=== PATIENT | male | born 2000 | race Caucasian/White ===

== ENCOUNTER 2024-04-20 16:56 | Emergency (ER) | payer OTHER, SELFPAY ==
[2024-04-20 16:57] VITALS: BP 100/68; PULSE 88; RESP 16; TEMP 36.6; O2SAT 100
[2024-04-20 16:59] VITALS: BMI 23.6
[2024-04-20 18:57] VITALS: PULSE 63; RESP 17; O2SAT 100
[2024-04-20 19:03] VITALS: BP 114/68; BP 122/85; BP 122/92; PULSE 63; PULSE 66; PULSE 88
--- NOTE | 2024-04-20 19:03 | EDS_ITS ---
HPI History of Present Illness Chief Complaint: Dizziness Informant: patient and spouse/S.O. Narrative Narrative: 23-year-old male presenting to the emergency room with near syncope. Patient states for the past several days he has had a productive cough nasal congestion and some vomiting. He states he has been trying to drink fluids and his urine is a light yellow. He notes subjective fever with sweating. He notes a slightly sore throat with coughing. No headache. He has not passed out but he gets the sensation really of lightheadedness and near syncope. Significant other was recently diagnosed with norovirus. He has not had any diarrhea. PFSH PFS Home Medications ?Medication ?Instructions ?Recorded ?Last Taken ?Type No Known/Unobtainable [No Known 4 Unknown History Home Medications] Allergy/AdvReac Type Severity Reaction Status Date / Time No Known Allergies Allergy Verified 04/20/24 16:57 Social History Smoking Status: Never smoker [facility] ED Constitutional Constitutional ED: Reports chills, fever(s) and subjective; Denies weight loss Eyes Eyes: Denies change in vision or diplopia ENT ENT ED: Reports rhinorrhea; Denies ear pain or sore throat Cardiovascular Cardiovascular: Reports other Details: Near syncope ; Denies chest pain, orthopnea, palpitations or racing heartbeat Respiratory/Chest Respiratory/Chest: Reports cough; Denies dyspnea or orthopnea Gastrointestinal Gastrointestinal: Reports nausea and vomiting; Denies abdominal pain or diarrhea Genitourinary Genitourinary ED: Denies dysuria, hematuria or urinary frequency Musculoskeletal Musculoskeletal: Denies arthralgias or myalgias Integumentary Denies abscess or rash Neurologic Neurologic: Denies headache(s) or weakness Psychiatric Psychiatric: Denies anxiety, depression, suicidal ideation or suicidal thoughts Endocrine Endocrinology: Denies polydipsia, polyphagia or polyuria Allergic/Immunologic Allergic/Immunologic ED: Denies mouth swelling, tongue swelling or urticaria EXAM Physical Exam Const Vital Signs: 04/20/24 16:57 04/20/24 18:57 04/20/24 19:03 Temperature 97.8 F Temperature Source Temporal Pulse Rate 88 63 Pulse Rate [Lying] 66 Pulse Rate [Sitting (for 1 minute prior to obtaining)] 63 Pulse Rate [Standing (for 1 minute prior to obtaining)] 88 Respiratory Rate 16 17 Blood Pressure 100/68 Blood Pressure [Lying] 122/85 H Blood Pressure [Sitting (for 1 minute prior to obtaining)] 114/68 Blood Pressure [Standing (for 1 minute prior to obtaining)] 122/92 H Blood Pressure Mean 78 Blood Pressure Mean [Lying] 97 Blood Pressure Mean [Sitting (for 1 minute prior to obtaining)] 83 Blood Pressure Mean [Standing (for 1 minute prior to obtaining)] 102 Pulse Ox 100 100 Oxygen Delivery Method Room Air 04/20/24 21:18 Temperature 97.7 F L Temperature Source Pulse Rate 67 Pulse Rate [Lying] Pulse Rate [Sitting (for 1 minute prior to obtaining)] Pulse Rate [Standing (for 1 minute prior to obtaining)] Respiratory Rate 16 Blood Pressure 122/92 H Blood Pressure [Lying] Blood Pressure [Sitting (for 1 minute prior to obtaining)] Blood Pressure [Standing (for 1 minute prior to obtaining)] Blood Pressure Mean 102 Blood Pressure Mean [Lying] Blood Pressure Mean [Sitting (for 1 minute prior to obtaining)] Blood Pressure Mean [Standing (for 1 minute prior to obtaining)] Pulse Ox 99 Oxygen Delivery Method Positive well nourished and well developed General Appearance ED: well developed and NAD HEENT Reports normocephalic, head/scalp atraumatic and moist mucous membranes Eyes PERRL and EOMs intact bilaterally Neck no lymphadenopathy, supple and no JVD Resp normal respiratory effort and clear to auscultation bilaterally Cardio regular rate, regular rhythm and no murmurs GI normal to inspection, nondistended, normoactive bowel sounds and non-tender Palpation: soft Back/Spine no CVA tenderness and normal ROM Extremity normal to inspection General Extremety ED: Negative for edema General Extremity: Negative for edema Neuro oriented x3 and CN's II-XII intact bilaterally Sensorium / Orientation: alert Motor Exam: strength 5/5 throughout Psych Mood & Affect: anxious; Negative for depressed or tearful Skin no rashes or lesions noted and no wounds MDM MDM MDM Narrative Medical decision making narrative: Differential diagnosis includes cardiac syncope dehydration electrolyte abn ormalities vasovagal near syncope pneumonia viral syndrome anemia pneumonia bronchitis Patient's white count is 4 hemoglobin 16.2 platelet count of 152. BMP with a potassium of 3.3 normal LFTs. His EKG is in normal sinus rhythm. He is influenza A positive. Patient received a dose of Toradol as well as IV fluids. He is not orthostatic. Clinically I think the patient can be discharged home wi th supportive care. He understands return instructions as well as oral hydration. History & Record Review Discussion w/independent historian: Patient and Significant other Lab Data Attestation: I reviewed the patient's lab results. Labs: Laboratory Results - last 24 hr 04/20/24 19:15 WBC 4.0 L RBC 5.44 Hgb 16.2 Hct 45.1 MCV 82.9 MCH 29.8 MCHC 35.9 RDW Std Deviation 35.9 RDW Coeff of Jose Manuel 11.9 Plt Count 152 MPV 10.3 Immature Gran % (Auto) 0.300 Neut % (Auto) 45.0 L Lymph % (Auto) 38.0 [place] % (Auto) 16.1 H Eos % (Auto) 0.3 Baso % (Auto) 0.3 Absolute Neuts (auto) 1.8 L Absolute Lymphs (auto) 1.51 Nucleated RBC % 0 Sodium 137 Potassium 3.3 L Chloride 104 Carbon Dioxide 25.0 Anion Gap 9 BUN 18 Creatinine 1.03 Estim Creat Clear Calc 98.93 Est GFR (MDRD) Af Amer 113 Est GFR (MDRD) Non-Af 93 BUN/Creatinine Ratio 17.5 Glucose 93 Calcium 9.1 Total Bilirubin 0.80 AST 37 ALT 44 Alkaline Phosphatase 59 Total Protein 7.9 Albumin 4.0 Globulin 3.9 Albumin/Globulin Ratio 1.0 EKG Initial EKG: Attestation: I personally reviewed and interpreted this EKG as follows: Comments: Normal sinus rhythm ventricular rate of 65 bpm. Incomplete right bundle branch block Discharge Plan Triage Chief Complaint: Dizziness ED Provider: Yury Chapman Dx/Rx/DC Orders Clinical Impression: Influenza A, Near syncope Instructions: ED Influenza (Adult) Prescriptions: No Action No Known Home Medications Primary Care Provider: Care Physician,No Primary Referrals: Tesfaye Luther MD [Non-Staff] - As Needed Print Language: Citizen Of [place] Disposition Disposition: Home, Self Care Discharge Date/Time: 04/20/24 21:19
--- NOTE | 2024-04-20 19:03 | EKG12_ITS ---
Test Reason : DYSRHYTHMIA Blood Pressure : */* mmHG Vent. Rate : 65 BPM Atrial Rate : 65 BPM P-R Int : 154 ms QRS Dur : 92 ms QT Int : 372 ms P-R-T Axes : 16 -86 37 degrees QTcB Int : 386 ms Normal sinus rhythm Left axis deviation Incomplete right bundle branch block Abnormal ECG Confirmed by CONCETTA IZQUIERDO, JEISON ([id number]), make up editor PARVIN SHELLEY ([id number]) on 04/24/2024 6:05:25 AM Referred By: Confirmed By: JEISON HYLTON MD
[2024-04-20 19:27] LABS: Absolute Lymphocyte Count 1.51 X10^3/uL (0.83-4.51); Absolute Neutrophil Count 1.8 X10^3/uL (2.0-7.7); Basophil# 0.01 X10^3/uL; Basophil% 0.3 % (0-1); Eosinophil# 0.01 X10^3/uL; Eosinophils% 0.3 % (0-5); Hematocrit 45.1 % (40-54); Hemoglobin 16.2 g/dL (13.0-16.5); Lymphocyte # 1.51 X10^3/ul (0.83-4.51); Mean Corp Hgb Conc 35.9 g/dL (32-36); Mean Corpuscular Hgb 29.8 pg (27.0-32.0); Mean Corpuscular Volume 82.9 fL (80-94); Mean Platelet Vol. 10.3 fl (6.2-12.0); Monocyte# 0.64 X10^3/uL; Monocyte% 16.1 % (0-10); NRBC Flagged by Analyzer 0 % (0-5); Neutrophil # 1.79 X10^3/uL (2.7-7.7); Platelet Count 152 K/mm3 (150-450); RBC Distribution Width CV 11.9 % (11.6-14.6); RBC Distribution Width SD 35.9 fl (35.1-43.9); Red Blood Count 5.44 M/mm3 (4.6-6.2)
[2024-04-20] MEDS: Ketorolac 30 MG/ML Syringe IV (19:30)
[2024-04-20] MEDS: 0.9% Normal Saline (1000mL) 1,000 ML 1000 ML IV (19:30)
--- NOTE | 2024-04-20 19:33 | ED.RN ---
pt's heart rate during orthostatics was 66,not 666.
[2024-04-20 19:43] LABS: AST(SGOT) 37 U/L (15-37); Alanine Aminotransfer ALT/SGPT 44 U/L (16-61); Alkaline Phosphatase 59 U/L (45-117); Anion Gap 9 (5-15); BUN 18 mg/dL (7-18); BUN/Creat Ratio 17.5 RATIO (10-20); Calcium,Total 9.1 mg/dL (8.5-10.1); Chloride 104 mmol/L (98-107); Creatinine, Serum 1.03 mg/dL (0.70-1.30); EST Glomerular Filtration Rate 93 mL/min (>60); Est Glom Filt Rate - Afr Amer 113 mL/min (>60); Estimated Creatinine Clearance 98.93 ml/min; Globulin 3.9 g/dL (2.2-4.2); Glucose 93 mg/dL (74-106); Potassium 3.3 mmol/L (3.5-5.1); Protein, Total 7.9 g/dL (6.4-8.2); Sodium Level 137 mmol/L (136-145)
[2024-04-20 21:18] VITALS: BP 122/92; PULSE 67; RESP 16; TEMP 36.5; O2SAT 99
== END 2024-04-20 21:19 | disposition home or self-care (01) ==
PROVIDERS: Emergency Provider Emergency Medicine; Visit Provider Emergency Medicine
DX: J10.1 Influenza due to other identified influenza virus with other respiratory manifestations (principal); R55 Syncope and collapse; R42 Dizziness and giddiness
CPT/HCPCS: 80053; 85025; 87631; 93005; 96361; 96374; 99284; A4216

== ENCOUNTER 2024-07-18 09:25 | Emergency (ER) | payer OTHER, SELFPAY ==
[2024-07-18 09:25] VITALS: BP 132/66; BP 139/81; PULSE 78; PULSE 80; RESP 14; RESP 16; TEMP 36.2; TEMP 37.1; O2SAT 99; BMI 25.0
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
[2024-07-18] MEDS: Ibuprofen 600 MG Tablet PO (09:38)
--- NOTE | 2024-07-18 09:40 | RAD_ITS ---
PROCEDURE: HAND MIN 3 VIEWS 07/18/2024 REASON FOR EXAM: INJURY TECHNIQUE: Three views of right hand COMPARISON: None FINDINGS: There is no fracture or dislocation. Joint spaces are maintained. Mineralization is normal. There is no radiopaque foreign body or focal soft tissue abnormality identified. RAD/Hand Min 3 Views IMPRESSION: No fracture or dislocation is identified. Reading Location: [facility]
== END 2024-07-18 10:13 | disposition home or self-care (01) ==
LOC: ED 10:06
PROVIDERS: Emergency Provider Emergency Medicine; Visit Provider Emergency Medicine
DX: S60.221A Contusion of right hand, initial encounter (principal); W22.09XA Striking against other stationary object, initial encounter; Y93.9 Activity, unspecified
CPT/HCPCS: 73130; 99282